=== PATIENT | male | born 1985 | race Two or more races ===

== ENCOUNTER → 2022-09-09 08:09 | Outpatient (CLI) | payer OTHER, SELFPAY ==
--- NOTE | ~2022-09-09 | MR_ITS ---
EXAMINATION: MR lumbar spine wo con DATE: 09/09/2022 08:35 INDICATION: Low back pain. TECHNIQUE: Magnetic resonance imaging (MRI) of the lumbar spine was performed without intravenous con trast. Sequences included sagittal T2-weighted FSE, sagittal T2-weighted FS FSE, sagittal T1-weighted FSE, and axial T2-weighted FSE. COMPARISON: None FINDINGS: Bone alignment is normal. Vertebral body heights are normal. There is mildly decreased disc height at L4-L5. There is developmental osseous central canal stenosis in lumbar spine. The distal s farida cord signal intensity is normal. The conus medullaris is at T12-L1. The following disc levels a re specifically discussed: L1-L2: The disc does not extend beyond the endplate margin. There is mild right facet joint osteoarth ritis. There is no neural foraminal stenosis. There is no central canal stenosis. L2-L3: The disc does not extend beyond the endplate margin. There is mild bilateral facet joint osteo arthritis. There is no neural foraminal stenosis. There is no central canal stenosis. L3-L4: There is a right central protrusion. There is no facet joint osteoarthritis. There is no neura l foraminal stenosis. There is mild central canal stenosis. L4-L5: The disc is bulging with superimposed right subarticular zone extrusion with mass effect on th e bilateral L5 nerve roots. There is mild bilateral facet joint osteoarthritis. There is moderate mynor ateral neural foraminal stenosis. There is moderate central canal stenosis. There is severe stenosis of right lateral recess. L5-S1: The disc does not extend beyond the endplate margin. There is mild bilateral facet joint osteo arthritis. There is no neural foraminal stenosis. There is no central canal stenosis. IMPRESSION: 1. Severe spondylosis at L4-L5. Reviewed, dictated and finalized at location A. SAFETY DIRECTOR
== END ==
PROVIDERS: PCP Internal Medicine; Visit Provider Internal Medicine
DX: M54.50 Low back pain, unspecified (principal); M43.06 Spondylolysis, lumbar region
CPT/HCPCS: 72148

== ENCOUNTER 2023-08-16 09:26 | Emergency (ER) | payer BC, SELFPAY ==
[2023-08-16 09:39] VITALS: BP 139/92; PULSE 92; RESP 18; TEMP 37; O2SAT 99
--- NOTE | 2023-08-16 09:57 | ED.URI ---
HPI - URI/Sore Throat General Chief Complaint: Upper Respiratory Infection Stated Complaint: HEADACHE/COUGH/CONGESTION Time Seen by Provider: 08/16/23 09:57 Source: patient Mode of arrival: ambulatory Limitations: no limitations History of Present Illness HPI Narrative: 37-year-old male presents with complaint of nasal congestion, sinus pressure, headaches for the past 3 weeks. Patient reports over the last 2 days he has been fatigued. Developed sore throat, worsening of his sinus congestion and pressure last night. Did take sinus decongestant and improved his symptoms. Patient concerned for bacterial sinus infection. All systems reviewed and negative except as noted above. Related Data Home Medications Medication Instructions Recorded Confirmed esomeprazole magnesium 40 mg 40 mg PO DAILY 07/25/20 07/25/20 capsule,delayed release rosuvastatin 20 mg tablet 20 mg PO HS 07/25/20 07/25/20 Allergies Allergy/AdvReac Type Severity Reaction Status Date / Time No Known Allergies Allergy Unverified 07/25/20 09:43 Review of Systems Review of Systems: CONSTITUTIONAL: Denies fever, chills, or sweats. EYES: Denies visual changes, redness, or discharge. ENT: Reports rhinorrhea, congestion, sore throat, sinus pressure. Denies otalgia. CARDIOVASCULAR: Denies chest pain, palpitations, or edema. RESPIRATORY: Denies cough or dyspnea. GASTROINTESTINAL: Denies abdominal pain, nausea, vomiting, or diarrhea. GENITOURINARY: Denies dysuria or hematuria. SKIN: Denies rash or itching. MUSCULOSKELETAL: Denies back pain, joint pain, or myalgia. NEUROLOGIC: Denies headache, numbness, or weakness. PSYCHIATRIC: Denies anxiety or depression. All other systems reviewed are negative, except as documented in HPI. PMFSH Social History Social History Smoking status: Never smoker Alcohol intake: never Substance use: never Substance use type: does not use Living arrangements: with family Spiritual care concerns: No Comments At time of signature, agree with nursing past medical, surgical, social and family history. There is no relevant family history pertinent to the presenting complaint. Exam Narrative: GENERAL: This is a well-nourished, well-developed patient, in no apparent distress. HEAD: normocephalic, atraumatic. EYES: PERRL. Sclera clear/white. Vision is grossly intact. EARS: External ears normal, auditory canals clear and without drainage, mild fluid without erythema or perforation. Hearing grossly intact. NOSE: External nose normal with purulent nasal drainage, erythema and swelling to bilateral nares. Frontal and maxillary sinus tenderness bilaterally THROAT: Mucous membranes moist, erythema with purulent postnasal drainage NECK: Neck supple, non-tender without lymphadenopathy, masses or thyromegaly. CARDIOVASCULAR: Regular rate and rhythm without murmurs, gallops, or rubs. RESPIRATORY: Clear to auscultation. Breath sounds equal bilaterally. No wheezes, rales, or rhonchi. SKIN: warm, Dry, intact with no suspicious lesions or rash, good texture and turgor. NEURO: awake, alert, and oriented to person, place and time. There were no obvious focal neurologic abnormalities. EXTREMITIES: No joint tenderness, effusion, or edema noted. Course Course Level of Care: Express Care Visit Vital Signs Vital signs: Vital Signs Temperature 37.0 C 08/16/23 09:39 Pulse Rate 92 08/16/23 09:39 Respiratory Rate 18 08/16/23 09:39 Blood Pressure 139/92 H 08/16/23 09:39 Pulse Oximetry 99 08/16/23 09:39 Oxygen Delivery Room Air 08/16/23 09:39 Temperature 37.0 C 08/16/23 09:39 Pulse Rate 92 08/16/23 09:39 Respiratory Rate 18 08/16/23 09:39 Blood Pressure 139/92 H 08/16/23 09:39 Pulse Oximetry 99 08/16/23 09:39 Oxygen Delivery Room Air 08/16/23 09:39 reviewed MDM - URI/Sore Throat MDM Narrative Medical decision making narrative: will treat patient for bacterial si
== END 2023-08-16 10:16 | disposition home or self-care (01) ==
PROVIDERS: Emergency Provider Nurse Practitioner Family; PCP Internal Medicine
DX: J01.90 Acute sinusitis, unspecified (principal); Z20.822 Contact with and (suspected) exposure to COVID-19
CPT/HCPCS: 87081; 87426; 87804; 87880; 99213; G0463

== ENCOUNTER 2024-05-14 08:03 | Outpatient (CLI) | payer BC, SELFPAY ==
--- NOTE | ~2024-05-14 | US_ITS ---
EXAMINATION: US thyroid DATE: 05/14/2024 08:25 INDICATION: Abnormal thyroid function tests. Hyperlipidemia. TECHNIQUE: Multiple ultrasound images of the thyroid were obtained. COMPARISON: None. FINDINGS: The right thyroid lobe measures 4.4 x 1.6 x 1.4 cm. The left thyroid lobe measures 4.5 x 1.2 x 1.3 c m. There is normal echotexture and echogenicity throughout the thyroid gland. No discrete nodules id entified. Normal vascular flow is present. IMPRESSION: 1. Normal thyroid. Reviewed, dictated and finalized at location A. ESS DIRECTOR IMPRESSION: 1. Normal thyroid.
== END 2024-05-14 08:04 | disposition home or self-care (01) ==
LOC: MICIMG 08:05
PROVIDERS: PCP Internal Medicine; Visit Provider Internal Medicine
DX: E78.5 Hyperlipidemia, unspecified (principal)
CPT/HCPCS: 76536